=== PATIENT | male | born 1970 | race Caucasian/White ===

== ENCOUNTER 2018-01-18 13:09 | Emergency (ER) | payer OTHER ==
[2018-01-18] MEDS: ACETAMINOPHEN 325 MG TAB PO (15:31)
== END 2018-01-18 17:22 | disposition home or self-care (01) ==
LOC: FTE 13:09
DX: S93.402A Sprain of unspecified ligament of left ankle, initial encounter (principal); X58.XXXA Exposure to other specified factors, initial encounter; Y92.9 Unspecified place or not applicable
CPT/HCPCS: 73610; 73630-LT; 99283-25

== ENCOUNTER 2018-03-07 15:51 | Emergency (ER) | payer OTHER ==
[2018-03-07] MEDS: METOCLOPRAMIDE 10 MG INJ IV (17:07)
[2018-03-07] MEDS: KETOROLAC 30 MG INJ IV ×2 (17:07→18:05)
[2018-03-07] MEDS: SOD CHLORIDE 0.9% 1,000 ML IV (17:07)
[2018-03-07] MEDS: DIPHENHYDRAMINE 50 MG INJ IV (17:08)
[2018-03-07 17:09] LABS: ADD MAN DIFF? NO
[2018-03-07 17:11] LABS: WHITE BLOOD COUNT 7.9 10^3/ul (4.8-10.8)
[2018-03-07 17:11] LABS: BASOPHILS % 0.5 % (0.0-2.0); EOSINOPHILS # 0.1 10^3/ul (0.0-0.5); EOSINOPHILS % 1.1 % (0.0-7.0); HEMATOCRIT 43.7 % (42.0-52.0); LYMPHOCYTES # 2.2 10^3/ul (0.8-2.9); LYMPHOCYTES % 27.4 % (15.0-51.0); MEAN CORPUSCULAR HEMOGLOBIN 28.7 pg (29.0-33.0); MEAN CORPUSCULAR HGB CONC 34.3 g/dl (32.0-37.0); MEAN CORPUSCULAR VOLUME 83.7 fl (82.0-101.0); MEAN PLATELET VOLUME 9.8 fl (7.4-10.4); MONOCYTE # 0.6 10^3/ul (0.3-0.9); MONOCYTES % 7.3 % (0.0-11.0); NEUTROPHILS % 63.4 % (39.0-77.0); PLATELET COUNT 207 10^3/UL (140-415); RED BLOOD COUNT 5.22 10^6/ul (4.70-6.10); RED CELL DISTRIBUTION WIDTH 12.9 % (11.5-14.5)
[2018-03-07 17:30] LABS: INR 0.93; PROTIME 12.5 Sec (11.9-14.9)
[2018-03-07 17:34] LABS: ANION GAP 11 (8-16); BLOOD UREA NITROGEN 14 mg/dl (7-20); CARBON DIOXIDE 27 mmol/L (21-31); CHLORIDE 102 mmol/L (97-110); CREATININE 0.89 mg/dl (0.61-1.24); GLUCOSE 296 mg/dl (70-220); POTASSIUM 3.8 mmol/L (3.5-5.1); SODIUM 136 mmol/L (135-144)
[2018-03-07 17:46] LABS: TROPONIN-I < 0.012 ng/ml (0.000-0.120)
== END 2018-03-07 18:45 | disposition home or self-care (01) ==
LOC: E/R 15:51
DX: R51 Headache (principal); I10 Essential (primary) hypertension; E11.9 Type 2 diabetes mellitus without complications; M79.605 Pain in left leg; Z79.4 Long term (current) use of insulin
CPT/HCPCS: 36415; 70450; 80048; 84484; 85025; 85610; 93005; 96374; 96375; 99285-25

== ENCOUNTER 2019-03-10 21:49 | Emergency (ER) | payer OTHER | END 2019-03-10 23:34 | disposition home or self-care (01) | LOC: FTE 21:49 | DX: R21 Rash and other nonspecific skin eruption (principal); E11.9 Type 2 diabetes mellitus without complications; N48.1 Balanitis; Z79.84 Long term (current) use of oral hypoglycemic drugs | CPT/HCPCS: 99283; Z7502 ==